=== PATIENT | female | born 1965 | race Caucasian/White ===

== ENCOUNTER 2019-12-14 06:01 | Day surgery (SDC) | payer SELFPAY ==
[2019-12-14] MEDS ORDERED: MIDAZOLAM 1 MG/ML, 5ML ONE (08:57)
[2019-12-14] MEDS ORDERED: FENTANYL PF 100 MCG/2ML ONE (08:57)
[2019-12-14] MEDS ORDERED: NALOXONE 1 MG/ML, 2ML ONE (08:58)
[2019-12-14] MEDS ORDERED: FLUMAZENIL 0.1 MG/1 ML, 5ML ONE (08:58)
[2019-12-14] MEDS ORDERED: LIDOCAINE 1%, 20ML ONE (09:00)
== END 2019-12-14 11:30 | disposition home or self-care (01) ==
LOC: OUT 06:01 → MERGE 06:01 → OUT 11:30
PROVIDERS: ATTEND Internal Medicine Hematology & Oncology
DX: C78.7 Secondary malignant neoplasm of liver and intrahepatic bile duct (principal); C18.7 Malignant neoplasm of sigmoid colon; F19.90 Other psychoactive substance use, unspecified, uncomplicated; Z79.899 Other long term (current) drug therapy; Z72.89 Other problems related to lifestyle
CPT/HCPCS: 36415; 47000; 76942; 85610; 88307; 88341; 88342; 99156; 99157; J2250; J3010; J2310